=== PATIENT | male | born 1990 | race Two or more races ===

== ENCOUNTER 2023-04-23 08:51 | Emergency (ER) | payer MEDICAID ==
[~2023-04-23] VITALS: Ht 172.7 cm; Wt 99.8 kg
[2023-04-23] MEDS ORDERED: LIDOCAINE HCL 1% 20 ML VIAL ONE ×2 (09:38→10:06)
[2023-04-23] MEDS ORDERED: LIDOCAINE HCL 1% 20 ML VIAL IJ ONE ×2 (09:45→10:30)
[2023-04-23] MEDS ORDERED: NEOMY/BACITRA/POLYMYXIN B OINT UD PACKET TP ONE ×2 (10:30→10:42)
[2023-04-23] MEDS ORDERED: CEphaleXIN 500 MG CAPSULE ONE (10:44)
[2023-04-23] MEDS ORDERED: CEPH500C2 PO (10:44)
[2023-04-23] MEDS ORDERED: IBUP-1957 PO (10:44)
[2023-04-23] MEDS ORDERED: CEphaleXIN 500 MG CAPSULE PO ONE (10:45)
[2023-04-23 10:47] VITALS: BP 143/75; TEMP 98.2; O2SAT 98
== END 2023-04-23 11:09 | disposition home or self-care (01) ==
LOC: ER 09:04
DX: S61.412A Laceration without foreign body of left hand, initial encounter (principal); Z79.1 Long term (current) use of non-steroidal anti-inflammatories (NSAID); Z79.899 Other long term (current) drug therapy; W27.0XXA Contact with workbench tool, initial encounter; Y93.89 Activity, other specified; Y92.89 Other specified places as the place of occurrence of the external cause; Y99.8 Other external cause status
CPT/HCPCS: 12002; 99283; J3490; A4606; A4663